=== PATIENT | female | born 1975 | race Caucasian/White ===

== ENCOUNTER → 2017-03-08 | Outpatient (REF) | payer OTHER | LOC: M LAB REF 17:14 | PROVIDERS: ATTEND Advanced Practice Midwife | DX: Z12.4 Encounter for screening for malignant neoplasm of cervix (principal); Z12.31 Encounter for screening mammogram for malignant neoplasm of breast ==

== ENCOUNTER → 2017-03-15 | Outpatient (REF) | payer OTHER ==
[2017-03-15 18:03] LABS: FREE T4 0.91 NG/DL (0.76-1.46)
[2017-03-15 20:18] LABS: MEAN CORPUSCULAR HEMOGLOBIN 31.5 pg (27.0-33.0); MEAN CORPUSCULAR HGB CONC 33.2 g/dl (32.0-36.5); RED CELL DISTRIBUTION WIDTH 11.5 % (11.5-14.5)
[2017-03-16 08:42] LABS: WHITE BLOOD COUNT 8.9 K/mm3 (4.0-10.0)
== END ==
LOC: M SMT 17:23
PROVIDERS: ATTEND Advanced Practice Midwife
DX: R63.5 Abnormal weight gain (principal)

== ENCOUNTER → 2017-03-31 | Outpatient (CLI) | payer OTHER ==
--- NOTE | 2017-03-31 10:59 | REPMRS ---
Patient History The patient states she had a clinical breast exam in February 2017.Family history of unknown cancer in father at age 50 or over, unknown cancer in maternal grandfather at age 50 or over, and breast cancer in paternal grandmother at age 50 or over. Digital Mammo Screening Bilat: March 31, 2017 - Exam #: [id number] Bilateral CC and MLO view(s) were taken. Technologist: Trinidad Jo, Technologist Prior study comparison: February 02, 2016, bilateral digital mammo screening bilat performed at [facility]. November 22, 2014, bilateral digital mammo screening bilat performed at [facility]. FINDINGS: The breast tissue is heterogeneously dense. This may lower the sensitivity of mammography. There is a moderate amount of heterogeneously dense fibroglandular tissue which is fairly symmetric. There is no interval development of dominant mass, architectural distortion, or clustered microcalcification typical of malignancy. There has been no change in the appearance of the mammogram from the prior studies. ASSESSMENT: BI-RADS/ACR category 1 mammogram. Negative. Recommendation Routine screening mammogram of both breasts in 1 year (for women over age 40). This mammogram was interpreted with the aid of an FDA-approved computer-aided dectection system. Electronically Signed By: Juan A Ruiz MD 03/31/17 [id number]
== END ==
LOC: M RAD 09:24
PROVIDERS: ATTEND Advanced Practice Midwife
DX: Z12.31 Encounter for screening mammogram for malignant neoplasm of breast (principal); Z80.3 Family history of malignant neoplasm of breast

== ENCOUNTER → 2017-10-12 | Outpatient (CLI) | payer OTHER ==
[2017-10-12 13:23] LABS: HEMATOCRIT 35.3 % (36.0-47.0); HEMOGLOBIN 11.4 g/dl (12.0-16.0); MEAN CORPUSCULAR HEMOGLOBIN 30.2 pg (27.0-33.0); MEAN CORPUSCULAR HGB CONC 32.3 g/dl (32.0-36.5); MEAN CORPUSCULAR VOLUME 93.4 fl (80.0-96.0); PLATELET COUNT, AUTOMATED 292 10^3/uL (150-450); RED BLOOD COUNT 3.78 10^6/uL (4.00-5.40); RED CELL DISTRIBUTION WIDTH 12.1 % (11.5-14.5); WHITE BLOOD COUNT 7.1 10^3/uL (4.0-10.0)
[2017-10-12 13:48] LABS: THYROID STIMULATING HORMONE 0.753 uIU/ML (0.358-3.740)
== END ==
LOC: M SMT 10:22
DX: R00.2 Palpitations (principal)
CPT/HCPCS: 84443

== ENCOUNTER → 2018-04-25 | Outpatient (REF) | payer OTHER ==
[2018-04-27 14:14] LABS: HPV HYBRID CAPTURE II Negative (Negative)
== END ==
LOC: M LAB REF 13:29
DX: Z01.419 Encounter for gynecological examination (general) (routine) without abnormal findings (principal); Z11.51 Encounter for screening for human papillomavirus (HPV)

== ENCOUNTER → 2018-05-01 | Outpatient (CLI) | payer OTHER ==
[2018-05-01 13:18] LABS: LUTEINIZING HORMONE 7.2 mIU/mL
[2018-05-01 13:19] LABS: FOLLICLE STIMULATING HORMONE 5.8 mIU/mL; FREE T4 0.78 NG/DL (0.76-1.46); THYROID STIMULATING HORMONE 0.776 uIU/ML (0.358-3.740)
[2018-05-02 11:18] LABS: ESTRADIOL 78.5 PG/ML
[2018-05-06 00:06] LABS: 17 HYDROXY PROGESTERONE 147 ng/dL (.); DEHYDROEPIANDROSTERONE SULFATE 182.4 ug/dL (57.3-279.2); INSULIN FREE 7.5 uU/mL (.); INSULIN TOTAL2 7.5 uU/mL (.); TESTOSTERONE FREE (DIRECT) 5.3 pg/mL (0.0-4.2)
== END ==
LOC: M LAB 12:12
DX: L68.0 Hirsutism (principal)
CPT/HCPCS: 83001

== ENCOUNTER → 2018-05-05 | Outpatient (CLI) | payer OTHER | LOC: M RAD 13:06 | DX: Z12.31 Encounter for screening mammogram for malignant neoplasm of breast (principal) ==

== ENCOUNTER → 2018-06-08 | Outpatient (REF) | payer OTHER | LOC: M SFHCPLAZ 15:08 | DX: E28.2 Polycystic ovarian syndrome (principal) ==

== ENCOUNTER → 2018-07-25 | Outpatient (CLI) | payer OTHER ==
[2018-07-25 11:49] LABS: ESTIMATED AVERAGE GLUCOSE 111 MG/DL (60-110); HEMOGLOBIN A1c 5.5 %
[2018-07-25 12:49] LABS: ALBUMIN 4.2 GM/DL (3.2-5.2); ALKALINE PHOSPHATASE 42 U/L (45-117); ALT/SGPT 12 U/L (12-78); ANION GAP 10 MEQ/L (8-16); AST/SGOT 15 U/L (7-37); BILIRUBIN,TOTAL 0.3 MG/DL (0.2-1.0); BLOOD UREA NITROGEN 11 MG/DL (7-18); CALCIUM LEVEL 8.9 MG/DL (8.5-10.1); CARBON DIOXIDE LEVEL 23 MEQ/L (21-32); CHLORIDE LEVEL 105 MEQ/L (98-107); CHOLESTEROL LEVEL 163 MG/DL (<200); CHOLESTEROL RISK RATIO 3.075 (<5); CREATININE FOR GFR 0.53 MG/DL (0.55-1.30); GLOMERULAR FILTRATION RATE > 60.0 (>58); GLUCOSE, FASTING 86 MG/DL (70-100); HDL CHOLESTEROL 53 MG/DL (>40); LDL CHOLESTEROL 95 MG/DL (<100); NON-HDL-C 110 MG/DL; POTASSIUM SERUM 4.1 MEQ/L (3.5-5.1); SODIUM LEVEL 138 MEQ/L (136-145); TOTAL PROTEIN 7.7 GM/DL (6.4-8.2); TRIGLYCERIDES LEVEL 77 MG/DL (<150)
== END ==
LOC: M LAB 10:23
DX: E28.2 Polycystic ovarian syndrome (principal)
CPT/HCPCS: 80053

== ENCOUNTER → 2019-05-14 | Outpatient (REF) | payer BC, OTHER ==
[2019-05-18 14:50] LABS: HPV HYBRID CAPTURE II Negative (Negative)
== END ==
LOC: M LAB REF 14:06
PROVIDERS: ATTEND Advanced Practice Midwife
DX: Z12.4 Encounter for screening for malignant neoplasm of cervix (principal)
CPT/HCPCS: 87624; G0123

== ENCOUNTER → 2019-05-30 | Outpatient (CLI) | payer BC ==
--- NOTE | 2019-05-30 13:07 | REPMRS ---
Patient History The patient states she had a clinical breast exam in 2018. Family history of unknown cancer at age 50 or over in maternal grandfather, unknown cancer at age 50 or over in father, breast cancer at age 50 or over in paternal grandmother. 3D TOMOSYNTHESIS WAS PERFORMED. The [facility] Riley lifetime risk for breast cancer is 17.1%. Digital Mammo Screening Bilat: May 30, 2019 - Exam #: [id number] Bilateral CC and MLO view(s) were taken. Technologist: Adore Vasquez, Technologist Prior study comparison: May 05, 2018, bilateral digital mammo screening bilat performed at [facility]. March 31, 2017, bilateral digital mammo screening bilat performed at [facility]. FINDINGS: The breast tissue is heterogeneously dense. This may lower the sensitivity of mammography. There has been no change in the appearance of the mammogram from the prior studies. There is a moderate amount of residual fibroglandular tissue which is fairly symmetric. There is no interval development of dominant mass, areas of architectural distortion, or clustered microcalcification typical of malignancy. Assessment: BI-RADS/ACR category 1 mammogram. Negative Mammogram. Recommendation Routine screening mammogram in 1 year (for women over age 40). This mammogram was interpreted with the aid of an FDA-approved computer-aided dectection system. Electronically Signed By: Alexi Mccarty MD 05/30/19 [id number]
== END ==
LOC: M RAD 12:06
PROVIDERS: ATTEND Advanced Practice Midwife
DX: Z12.31 Encounter for screening mammogram for malignant neoplasm of breast (principal); Z80.3 Family history of malignant neoplasm of breast

== ENCOUNTER → 2020-06-16 | Outpatient (CLI) | payer BC ==
[~2020-06-16] MED LIST: CYAN500T8 PO; LORA-243 PO; METF750T41 PO; SPIR100T3 PO
[2020-06-16 18:16] LABS: BLOOD UREA NITROGEN 11 MG/DL (7-18); CALCIUM LEVEL 9.1 MG/DL (8.5-10.1); CARBON DIOXIDE LEVEL 29 MEQ/L (21-32); CHLORIDE LEVEL 104 MEQ/L (98-107); GLOMERULAR FILTRATION RATE > 60.0 (>58); GLUCOSE, FASTING 86 MG/DL (70-100); POTASSIUM SERUM 4.5 MEQ/L (3.5-5.1); SODIUM LEVEL 136 MEQ/L (136-145)
== END ==
LOC: M PLALAB 15:49
PROVIDERS: ATTEND Family Medicine
DX: Z01.818 Encounter for other preprocedural examination (principal)

== ENCOUNTER → 2020-06-18 | Outpatient (CLI) | payer BC | LOC: M LABSMTC 09:36 | PROVIDERS: ATTEND Anesthesiology | DX: Z01.812 Encounter for preprocedural laboratory examination (principal); Z20.828 Contact with and (suspected) exposure to other viral communicable diseases | CPT/HCPCS: C9803; U0003 ==

== ENCOUNTER → 2020-06-18 | Outpatient (CLI) | payer BC ==
[2020-06-18 13:41] LABS: HEMATOCRIT 36.6 % (36.0-47.0); HEMOGLOBIN 11.8 g/dl (12.0-15.5); MEAN CORPUSCULAR HEMOGLOBIN 30.3 pg (27.0-33.0); MEAN CORPUSCULAR HGB CONC 32.2 g/dl (32.0-36.5); MEAN CORPUSCULAR VOLUME 93.8 fl (80.0-96.0); PLATELET COUNT, AUTOMATED 317 10^3/uL (150-450); WHITE BLOOD COUNT 7.1 10^3/uL (4.0-10.0)
== END ==
LOC: M PLALAB 10:04
PROVIDERS: ATTEND Family Medicine
DX: Z01.818 Encounter for other preprocedural examination (principal); Z86.2 Personal history of diseases of the blood and blood-forming organs and certain disorders involving the immune mechanism

== ENCOUNTER → 2020-06-20 | Outpatient (CLI) | payer BC ==
--- NOTE | 2020-06-21 09:43 | ECGEPIP ---
[facility] Test Date: 2020-06-20 Pat Name: CHRISTEL WEST Department: Room: - Gender: Female Checkroom Attendant: ABELARDO : 1975 Requested By: ELROY Mckeon Order Number: [id number] Reading MD: David Parker Measurements Intervals [place] Rate: 83 P: 67 WV: 150 QRS: 26 QRSD: 91 T: 42 QT: 360 QTc: 424 Interpretive Statements Normal sinus rhythm Nonspecific ST abnormalities Comparison tracing not on file Electronically Signed on 06-21-2020 9:42:46 EDT by David Parker
== END ==
LOC: M EKG 14:14
PROVIDERS: ATTEND Orthopaedic Surgery
DX: Z01.818 Encounter for other preprocedural examination (principal)

== ENCOUNTER 2020-06-23 09:04 | Day surgery (SDC) | payer BC ==
[~2020-06-23] VITALS: Ht 166.4 cm; Wt 85.6 kg
[~2020-06-23 09:04] MED LIST changes: +LIDOCAINE 2% 100MG/5ML SDV (FOR ANES.) As Ordered ONE; +MIDAZOLAM INJ 2MG/2ML VIAL (J2250 PER 1MG) As Ordered ONE; +MIDAZOLAM INJ 2MG/2ML VIAL (J2250 PER 1MG) IV SCH; +ONDANSETRON 4MG/2ML VIAL As Ordered ONE; +ROCURONIUM BROMIDE 50 MG/5 ML VIAL As Ordered ONE; +SUGAMMADEX SODIUM 500 MG/5 ML VIAL (BRIDION) As Ordered ONE; +ceFAZolin SOD 2 GM in IV 1 EA IV ONE; +dexameTHASONE 4 MG/ML 1ML VIAL (J1100 PER 1MG) As Ordered ONE; +fentaNYL 100 MCG/2 ML INJECTION (J3010) IV SCH; +fentaNYL 250 MCG/5 ML INJECTION (J3010) As Ordered ONE; +propofoL 200 MG/20 ML VIAL As Ordered ONE
[2020-06-23] MEDS ORDERED: EPINEPHrine INJ 1 MG/ML 1ML AMP ONE (09:05)
[2020-06-23] MEDS ORDERED: ROPIvacaine 0.5% 30ML INJECTION (J2795 PER 1MG) ONE (09:05)
[2020-06-23] MEDS ORDERED: dexameTHASONE 10MG/1ML VIAL PRES.FREE (J1100 PER 1MG) ONE (09:05)
[2020-06-23] MEDS ORDERED: MIDAZOLAM INJ 2MG/2ML VIAL (J2250 PER 1MG) As Ordered ONE (09:38)
[2020-06-23] MEDS ORDERED: fentaNYL 100 MCG/2 ML INJECTION (J3010) As Ordered ONE (09:38)
[2020-06-23] MEDS ORDERED: EPINEPHrine 1MG/ML INJ 30ML MD-VIAL ONE (09:50)
[2020-06-23] MEDS ORDERED: ACETAMINOPHEN 1000MG 100ML IV BTL (OFIRMEV) (J0131 PER 10MG) As Ordered ONE (11:14)
[2020-06-23] MEDS ORDERED: METOCLOPRAMIDE INJ 10MG/2ML VIAL (J2765 PER 1) As Ordered ONE (12:52)
[2020-06-23] MEDS ORDERED: MEPERIDINE INJ 25 MG/ML VIAL (J2175) IV PRN (13:00)
[2020-06-23] MEDS ORDERED: METOCLOPRAMIDE INJ 10MG/2ML VIAL (J2765 PER 1) IV PRN (13:00)
[2020-06-23] MEDS ORDERED: ONDANSETRON 4MG/2ML VIAL IV PRN (13:00)
[2020-06-23] MEDS ORDERED: oxyCODONE 5MG TAB PO PRN (13:00)
[2020-06-23] MEDS ORDERED: LR 1,000 ML IV SCH ×2 (13:00)
[2020-06-23] MEDS ORDERED: fentaNYL 100 MCG/2 ML INJECTION (J3010) IV PRN (13:00)
[2020-06-23 15:25] VITALS: BP 106/56
[2020-06-24] MEDS ORDERED: LR 1,000 ML IV ONE (07:00)
--- NOTE | 2020-07-01 15:10 | RO ---
DATE OF OPERATION: 06/23/2020 PREOPERATIVE DIAGNOSES: * Right shoulder calcific tendonitis. * Right shoulder partial thickness rotator cuff tear. * Right shoulder biceps tendonitis. * Right shoulder AC joint arthritis. POSTOPERATIVE DIAGNOSES: * Right shoulder calcific tendonitis. * Right shoulder partial bursal rotator cuff tear. * Right shoulder biceps tendonitis. * Right shoulder AC joint arthritis. PROCEDURES: * Right shoulder arthroscopic decompression of calcific tendonitis. * Right shoulder arthroscopic rotator cuff debridement. * Right shoulder open subpectoral biceps tenodesis. SURGEON: Dr. Wilfred Shaver INSULATION PACKER: HAROLDO Seaman ANESTHESIA: General with preoperative nerve block. IV FLUIDS: Lactated Ringer's. ESTIMATED BLOOD LOSS: 10 mL. IMPLANTS: Arthrex proximal biceps button x1. CLOSURE: Monocryl and nylon. PROCEDURE: The patient was identified in the preoperative holding area, the right shoulder was marked. She had an interscalene nerve block from anesthesia. She was brought to the operating room and placed supine in well padded OR table with beanbag. General anesthesia was induced. Examination under anesthesia revealed 180 degrees of forward flexion, 90 of external rotation, no increased anterior posterior translation. She was placed in left-side down lateral decubitus position with axillary roll and all bony prominences well padded. Bilateral SCDs for DVT prophylaxis. The right arm was placed into Arthrex STaR sleeve lateral decubitus traction sheldon with 10 pounds of traction. The right shoulder was prepped and draped in a normal sterile fashion with ChloraPrep. She received appropriate IV antibiotics within one hour of incision. Coni Escoto was present for the entire procedure and participated in all essential portions of the procedure. This included patient positioning and draping, holding the arthroscope, holding retractors during the biceps tenodesis, assisting with whip-stitching of the tendon and securing the tendon. She also performed wound closure, applied the dressing and sling. Prior to incision time out was performed per hospital protocol. The right shoulder was insufflated with lactated Ringer's. Standard posterolateral portal was made with an 11-blade. 30-degree arthroscope was introduced into the joint. Diagnostic arthroscopy was carried out. There was an area of grade 1 chondromalacia in the posterior humeral head. The glenoid was in excellent condition. There was type 1 superior labral tear. There was a Paulette complex. There was no tearing of the articular surface of the rotator cuff. An anterior working portal was established through the rotator interval. Triple Arthrex cannula placed. On probing of the superior labrum I would say there is a type SLAP tear. The long head of the biceps was brought into the joint where there was some hyperemia along the tendon and based on her preoperative symptoms of tenderness at the bicipital groove and positive Speeds test I elected to proceed with the biceps tenodesis. The meniscal biter was used to release long head of the biceps off the superior labrum. The stump was debrided with a shaver. Shoulder joint was irrigated and drained. We then proceed with the open biceps tenodesis. 15-blade was used to make an incision just lateral to the axilla. Dissection down to the bicipital groove with Metzenbaum scissors. The fascia was carefully opened and the bicipital groove palpated. Long head of the biceps was dissected out uneventfully with right angle clamp. There was some flattening of the tendon proximally consistent with some intrasubstance split tearing. A running locking whipped stitch was then placed with the FiberLoop from the Arthrex proximal biceps kit. Excess tendon cut and sent to pathology. Sutures were loaded through the biceps button per routine. The unicortical drill hole was then made with spade tip drill bit within the bicipital groove just proximal to the lower edge of the pec major tendon. Irrigation was used to remove bony debris. The button was passed through the drill hole on its insertor, sutures were toggled to flip the button and reduce the tendon to the groove nicely. Curved free needle was used to pass one limb of suture back through the tendon and knots were tied by hand to lock the construct in place. This nicely restored the resting tension of the biceps. The incision was then irrigated and then closed with 2-0 Vicryl, 2-0 Vicryl and running Monocryl. At the end of the case Steri-Strips were placed. The arthroscope was now placed into the subacromial space where there was moderate bursitis. There was a partial bursal rotator cuff tear that appeared low grade. Through a lateral working portal I performed a bursectomy. There was no large spur from the anterior acromion. It was then apparent that the patient did have somewhat unstable os acromiale and this was noted on preoperative imaging and she did not have any specific tenderness there. The distal clavicle was identified and there was not a typical joint space between the anterior meso-acromion and the distal clavicle. There was actually more mobility at the os site than at the AC joint. So there is really no indication for an acromioplasty here. The bur was used to remove small amount of bone from the inferior surface of the distal clavicle to eliminate any impingement. At this point I felt that performing thorough distal clavicle excision would result in increased instability of the os acromiale and increase the chance that she would need some type of ORIF there which has a high failure rate. The shaver was used to perform a bursectomy. I also debrided a partial bursal- sided rotator cuff tear, this was noted in the area of the calcific tendonitis as well as far lateral at the footprint. Spinal needle was then used to gently trephinate the area of calcific tendonitis and then switching stick was used to milk out the calcium deposit. These steps were repeated until all calcium tissue had been decompressed and removed with the shaver. The shaver was then used to perform a careful debridement of the adjacent rotator cuff fibers. The shoulder was internally and externally rotated. There was no buckling or liftoff. The calcium deposit location was very close to the muscle-tendon junction, it was probably 7-8 mm lateral to the muscle-tendon junction. This did not warrant a repair. The shoulder was then irrigated and drained. Portals were closed with nylon suture. Steri-Strips were placed over the biceps incision and she was placed into a bulky sterile dressing. At the time of this dictation sling is about to be placed and then she will be brought to the PACU in stable condition following extubation. All counts correct x2. COMPLICATIONS: None. ZULEMA
== END 2020-06-23 16:04 | disposition home or self-care (01) ==
LOC: M SDC 09:04
PROVIDERS: ATTEND Orthopaedic Surgery
DX: M75.111 Incomplete rotator cuff tear or rupture of right shoulder, not specified as traumatic (principal); M75.21 Bicipital tendinitis, right shoulder; M75.41 Impingement syndrome of right shoulder; M19.011 Primary osteoarthritis, right shoulder; Z88.5 Allergy status to narcotic agent; Z88.8 Allergy status to other drugs, medicaments and biological substances; E28.2 Polycystic ovarian syndrome
CPT/HCPCS: 23430; 29823; 29826; 64415; 81025; 88304; C1713; J0131; J0171; J0690; J1100; J2405; J2765; J2795; J3010

== ENCOUNTER → 2020-08-20 | Outpatient (REF) | payer BC ==
[~2020-08-20] MED LIST changes: -LIDOCAINE 2% 100MG/5ML SDV (FOR ANES.) As Ordered ONE; -MIDAZOLAM INJ 2MG/2ML VIAL (J2250 PER 1MG) As Ordered ONE; -MIDAZOLAM INJ 2MG/2ML VIAL (J2250 PER 1MG) IV SCH; -ONDANSETRON 4MG/2ML VIAL As Ordered ONE; -ROCURONIUM BROMIDE 50 MG/5 ML VIAL As Ordered ONE; -SUGAMMADEX SODIUM 500 MG/5 ML VIAL (BRIDION) As Ordered ONE; -ceFAZolin SOD 2 GM in IV 1 EA IV ONE; -dexameTHASONE 4 MG/ML 1ML VIAL (J1100 PER 1MG) As Ordered ONE; -fentaNYL 100 MCG/2 ML INJECTION (J3010) IV SCH; -fentaNYL 250 MCG/5 ML INJECTION (J3010) As Ordered ONE; -propofoL 200 MG/20 ML VIAL As Ordered ONE
[2020-08-20 13:45] LABS: HEMATOCRIT 36.4 % (36.0-47.0); HEMOGLOBIN 11.4 g/dl (12.0-15.5); MEAN CORPUSCULAR HEMOGLOBIN 29.2 pg (27.0-33.0); MEAN CORPUSCULAR HGB CONC 31.3 g/dl (32.0-36.5); MEAN CORPUSCULAR VOLUME 93.3 fl (80.0-96.0); PLATELET COUNT, AUTOMATED 326 10^3/uL (150-450); WHITE BLOOD COUNT 5.5 10^3/uL (4.0-10.0)
[2020-08-20 14:19] LABS: FOLATE 13.1 NG/ML
== END ==
LOC: M SFHCPLAZ 11:08
DX: D64.9 Anemia, unspecified (principal)

== ENCOUNTER → 2021-01-06 | Outpatient (CLI) | payer BC ==
[~2021-01-06] MED LIST changes: +CYAN500T14 PO; -CYAN500T8 PO
== END ==
LOC: M WHC 15:52
PROVIDERS: ATTEND Advanced Practice Midwife
DX: Z12.31 Encounter for screening mammogram for malignant neoplasm of breast (principal); Z53.9 Procedure and treatment not carried out, unspecified reason

== ENCOUNTER → 2021-01-06 | Outpatient (REF) | payer BC | LOC: M SFHCWAGY 10:05 | PROVIDERS: ATTEND Advanced Practice Midwife | DX: Z12.4 Encounter for screening for malignant neoplasm of cervix (principal) ==

== ENCOUNTER → 2021-02-11 | Outpatient (CLI) | payer BC ==
--- NOTE | 2021-02-11 11:27 | REPMRS ---
Patient History The patient states she had a clinical breast exam in December 2020. Family history of unknown cancer at age 50 or over in maternal grandfather, unknown cancer at age 50 or over in father, breast cancer at age 50 or over in paternal grandmother. Tomosynthesis is performed. Volpara breast density is c. [facility] lifetime risk of breast cancer 16.7%. Patient has signed MRS History Sheet. Digital Woman Screen Mammo: February 11, 2021 - Exam #: [id number] Bilateral CC and MLO view(s) were taken. Technologist: RT Rima Prior study comparison: May 30, 2019, bilateral digital mammo screening bilat, performed at [facility]. May 05, 2018, bilateral digital mammo screening bilat, performed at [facility]. FINDINGS: The breast tissue is heterogeneously dense. This may lower the sensitivity of mammography. There has been no change in the appearance of the mammogram from the prior studies. There is a moderate amount of residual fibroglandular tissue which is fairly symmetric. There is no interval development of dominant mass, areas of architectural distortion, or clustered microcalcification typical of malignancy. Assessment: BI-RADS/ACR category 1 mammogram. Negative Mammogram. Recommendation Routine screening mammogram in 1 year (for women over age 40). This mammogram was interpreted with the aid of an FDA-approved computer-aided dectection system. Electronically Signed By: Alexi Mccarty MD 02/11/21 1123
== END ==
LOC: M WHC 09:49
PROVIDERS: ATTEND Advanced Practice Midwife
DX: Z12.31 Encounter for screening mammogram for malignant neoplasm of breast (principal); Z80.3 Family history of malignant neoplasm of breast

== ENCOUNTER → 2021-03-27 | Outpatient (CLI) | payer BC ==
[2021-03-31 18:08] LABS: HEPATITIS C QUANTITATION HCV Not Detected IU/mL (.)
== END ==
LOC: M PLALAB 13:47
PROVIDERS: ATTEND Student in an Organized Health Care Education/Training Program
DX: Z13.9 Encounter for screening, unspecified (principal)

== ENCOUNTER → 2021-04-02 | Outpatient (REF) | payer BC | LOC: M SFHCPLAZ 11:53 | DX: Z13.9 Encounter for screening, unspecified (principal) ==

== ENCOUNTER → 2021-10-23 | Outpatient (CLI) | payer BC ==
[2021-10-23 17:57] LABS: FREE T4 0.97 NG/DL (0.76-1.46); THYROID STIMULATING HORMONE 0.594 uIU/ML (0.358-3.740)
== END ==
LOC: M PLALAB 14:03
PROVIDERS: ATTEND Student in an Organized Health Care Education/Training Program
DX: R53.83 Other fatigue (principal)

== ENCOUNTER → 2022-07-09 | Outpatient (CLI) | payer BC | LOC: M WHC 08:47 | PROVIDERS: ATTEND Obstetrics & Gynecology | DX: Z12.31 Encounter for screening mammogram for malignant neoplasm of breast (principal) ==

== ENCOUNTER → 2022-10-08 | Outpatient (CLI) | payer BC ==
[2022-10-08 17:30] LABS: THYROID STIMULATING HORMONE 0.659 uIU/ML (0.55-4.78)
[2022-10-08 17:31] LABS: FREE T4 0.94 NG/DL (0.89-1.76)
[2022-10-08 17:33] LABS: THYROGLOBULIN ANTIBODY < 15.0 U/ML (<60.0)
[2022-10-08 17:34] LABS: THYROID PEROXIDASE ANTIBODY 32 U/ML (<60.0)
== END ==
LOC: M PLALAB 15:40
PROVIDERS: ATTEND Student in an Organized Health Care Education/Training Program
DX: R07.89 Other chest pain (principal)

== ENCOUNTER → 2022-11-05 | Outpatient (REF) | payer BC | LOC: M SFHCWAGY 13:09 | PROVIDERS: ATTEND Advanced Practice Midwife | DX: Z12.4 Encounter for screening for malignant neoplasm of cervix (principal); R87.615 Unsatisfactory cytologic smear of cervix ==

== ENCOUNTER → 2022-12-30 | Outpatient (CLI) | payer BC ==
[2022-12-30 18:26] LABS: BASO # 0.1 10^3/uL (0.0-0.2); BASO % 0.7 % (0.0-1.0); EOS # 0.1 10^3/uL (0.0-0.5); EOS % 0.7 % (0.0-3.0); HEMATOCRIT 32.2 % (36.0-47.0); HEMOGLOBIN 10.3 g/dl (12.0-15.5); LYMPH # 2.7 10^3/uL (1.5-5.0); LYMPH % 33.4 % (24.0-44.0); MEAN CORPUSCULAR HEMOGLOBIN 28.9 pg (27.0-33.0); MEAN CORPUSCULAR VOLUME 90.2 fl (80.0-96.0); MONO # 0.7 10^3/uL (0.0-0.8); MONO % 8.2 % (2.0-8.0); NEUTROPHILS # 4.6 10^3/uL (1.5-8.5); NEUTROPHILS % 56.8 % (36.0-66.0); PLATELET COUNT, AUTOMATED 339 10^3/uL (150-450); RED BLOOD COUNT 3.57 10^6/uL (4.00-5.40)
[2022-12-30 18:54] LABS: PERCENT SATURATION 9.1 % (13.2-45.0)
[2022-12-30 18:57] LABS: FERRITIN 5.1 NG/ML (7.3-270.7)
== END ==
LOC: M PLALAB 15:14
PROVIDERS: ATTEND Student in an Organized Health Care Education/Training Program
DX: R42 Dizziness and giddiness (principal)

== ENCOUNTER → 2022-12-30 | Outpatient (REF) | payer BC | LOC: M SFHCPLAZ 14:07 | PROVIDERS: ATTEND Internal Medicine Hematology | DX: R42 Dizziness and giddiness (principal); Z53.9 Procedure and treatment not carried out, unspecified reason ==

== ENCOUNTER → 2023-02-18 | Outpatient (CLI) | payer BC | LOC: M CARPUL 10:25 | PROVIDERS: ATTEND Student in an Organized Health Care Education/Training Program | DX: R07.89 Other chest pain (principal) ==

== ENCOUNTER → 2023-03-14 | Outpatient (CLI) | payer BC ==
[2023-03-14 15:32] LABS: BASO # 0.1 10^3/uL (0.0-0.2); BASO % 0.6 % (0.0-1.0); EOS # 0.1 10^3/uL (0.0-0.5); EOS % 1.3 % (0.0-3.0); HEMATOCRIT 34.8 % (36.0-47.0); LYMPH # 2.2 10^3/uL (1.5-5.0); LYMPH % 27.6 % (24.0-44.0); MEAN CORPUSCULAR HEMOGLOBIN 28.9 pg (27.0-33.0); MEAN CORPUSCULAR HGB CONC 31.6 g/dl (32.0-36.5); MEAN CORPUSCULAR VOLUME 91.3 fl (80.0-96.0); MONO # 0.6 10^3/uL (0.0-0.8); NEUTROPHILS % 62.2 % (36.0-66.0); PLATELET COUNT, AUTOMATED 344 10^3/uL (150-450); RED BLOOD COUNT 3.81 10^6/uL (4.00-5.40)
[2023-03-14 16:06] LABS: ALBUMIN 3.8 G/DL (3.2-5.2); BLOOD UREA NITROGEN 12 MG/DL (9-23); CALCIUM LEVEL 8.5 MG/DL (8.5-10.1); CARBON DIOXIDE LEVEL 28 MMOL/L (20-31); CHLORIDE LEVEL 106 MMOL/L (98-107); CREATININE FOR GFR 0.75 MG/DL (0.55-1.30); GLOMERULAR FILTRATION RATE > 60.0 (>58); GLUCOSE, FASTING 84 MG/DL (60-100); PHOSPHORUS LEVEL 3.7 MG/DL (2.5-4.9); POTASSIUM SERUM 4.2 MMOL/L (3.5-5.1); SODIUM LEVEL 141 MMOL/L (136-145)
[2023-03-14 16:07] LABS: IRON (FE) 55 UG/DL (50-170); PERCENT SATURATION 14.3 % (13.2-45.0); TOTAL IRON BINDING CAPACITY 384 UG/DL (250-425)
[2023-03-14 16:18] LABS: FERRITIN 7.1 NG/ML (7.3-270.7)
== END ==
LOC: M PLALAB 13:12
PROVIDERS: ATTEND Internal Medicine Cardiovascular Disease
DX: R06.02 Shortness of breath (principal); R42 Dizziness and giddiness; D64.9 Anemia, unspecified

== ENCOUNTER → 2023-04-06 | Outpatient (CLI) | payer BC | LOC: M CARPUL 14:26 | PROVIDERS: ATTEND Internal Medicine Cardiovascular Disease | DX: R06.02 Shortness of breath (principal) ==

== ENCOUNTER → 2023-04-28 | Outpatient (REF) | payer BC | LOC: M SFHCPLAZ 13:15 | PROVIDERS: ATTEND Family Medicine | DX: D23.62 Other benign neoplasm of skin of left upper limb, including shoulder (principal) ==

== ENCOUNTER → 2023-05-13 | Outpatient (REF) | payer BC ==
[2023-05-13 18:28] LABS: BASO # 0.1 10^3/uL (0.0-0.2); BASO % 0.7 % (0.0-1.0); EOS # 0.1 10^3/uL (0.0-0.5); EOS % 1.2 % (0.0-3.0); HEMATOCRIT 35.3 % (36.0-47.0); HEMOGLOBIN 11.5 g/dl (12.0-15.5); LYMPH # 3.2 10^3/uL (1.5-5.0); LYMPH % 34.3 % (24.0-44.0); MEAN CORPUSCULAR HEMOGLOBIN 30.1 pg (27.0-33.0); MEAN CORPUSCULAR HGB CONC 32.6 g/dl (32.0-36.5); MEAN CORPUSCULAR VOLUME 92.4 fl (80.0-96.0); MONO # 0.9 10^3/uL (0.0-0.8); MONO % 9.3 % (2.0-8.0); NEUTROPHILS % 54.2 % (36.0-66.0); PLATELET COUNT, AUTOMATED 325 10^3/uL (150-450); RED BLOOD COUNT 3.82 10^6/uL (4.00-5.40); WHITE BLOOD COUNT 9.2 10^3/uL (4.0-10.0)
[2023-05-13 19:02] LABS: PERCENT SATURATION 12.7 % (13.2-45.0)
[2023-05-13 19:05] LABS: FERRITIN 15.1 NG/ML (7.3-270.7)
== END ==
LOC: M LABDRAWP 18:16
PROVIDERS: ATTEND Internal Medicine Cardiovascular Disease
DX: D64.9 Anemia, unspecified (principal)

== ENCOUNTER → 2023-07-27 | Outpatient (CLI) | payer OTHER ==
[2023-07-27 18:31] LABS: HEMATOCRIT 34.1 % (36.0-47.0); MEAN CORPUSCULAR HEMOGLOBIN 30.5 pg (27.0-33.0); MEAN CORPUSCULAR HGB CONC 32.3 g/dl (32.0-36.5); MEAN CORPUSCULAR VOLUME 94.5 fl (80.0-96.0); PLATELET COUNT, AUTOMATED 311 10^3/uL (150-450); RED BLOOD COUNT 3.61 10^6/uL (4.00-5.40)
[2023-07-27 18:48] LABS: HEMOGLOBIN A1c 5.1 % (4.0-6.0)
[2023-07-27 18:53] LABS: ALBUMIN 3.8 G/DL (3.2-5.2); BLOOD UREA NITROGEN 13 MG/DL (9-23); CALCIUM LEVEL 8.8 MG/DL (8.5-10.1); CARBON DIOXIDE LEVEL 28 MMOL/L (20-31); CHLORIDE LEVEL 106 MMOL/L (98-107); CREATININE FOR GFR 0.61 MG/DL (0.55-1.30); GLOMERULAR FILTRATION RATE > 60.0 (>58); GLUCOSE, FASTING 85 MG/DL (60-100); IRON (FE) 32 UG/DL (50-170); PERCENT SATURATION 9.8 % (13.2-45.0); PHOSPHORUS LEVEL 3.8 MG/DL (2.5-4.9); POTASSIUM SERUM 4.2 MMOL/L (3.5-5.1); SODIUM LEVEL 142 MMOL/L (136-145); TOTAL IRON BINDING CAPACITY 327 UG/DL (250-425)
== END ==
LOC: M PLALAB 16:48
PROVIDERS: ATTEND Internal Medicine Cardiovascular Disease
DX: R07.2 Precordial pain (principal); R06.02 Shortness of breath; R73.02 Impaired glucose tolerance (oral)

== ENCOUNTER → 2023-08-05 | Outpatient (CLI) | payer OTHER ==
[2023-08-05 18:25] LABS: FREE T4 0.84 NG/DL (0.89-1.76); THYROID STIMULATING HORMONE 0.716 uIU/ML (0.55-4.78)
== END ==
LOC: M PLALAB 14:51
PROVIDERS: ATTEND Student in an Organized Health Care Education/Training Program
DX: R00.2 Palpitations (principal); M25.561 Pain in right knee; M76.891 Other specified enthesopathies of right lower limb, excluding foot

== ENCOUNTER → 2023-08-05 | Outpatient (REF) | payer OTHER | LOC: M SFHCPLAZ 14:50 | PROVIDERS: ATTEND Family Medicine | DX: R00.2 Palpitations (principal); Z53.9 Procedure and treatment not carried out, unspecified reason ==

== ENCOUNTER → 2023-10-20 | Outpatient (CLI) | payer OTHER | LOC: M PLAIMG 16:18 | PROVIDERS: ATTEND Student in an Organized Health Care Education/Training Program | DX: R20.2 Paresthesia of skin (principal); M19.012 Primary osteoarthritis, left shoulder; M75.32 Calcific tendinitis of left shoulder; M50.323 Other cervical disc degeneration at C6-C7 level; M47.812 Spondylosis without myelopathy or radiculopathy, cervical region ==

== ENCOUNTER → 2023-10-20 | Outpatient (REF) | payer OTHER | LOC: M SFHCPLAZ 15:41 | PROVIDERS: ATTEND Internal Medicine Hematology | DX: Z53.9 Procedure and treatment not carried out, unspecified reason (principal); R20.2 Paresthesia of skin ==

== ENCOUNTER → 2023-11-21 | Outpatient (REF) | payer OTHER | LOC: M SFHCWAGY 13:47 | PROVIDERS: ATTEND Advanced Practice Midwife | DX: Z12.4 Encounter for screening for malignant neoplasm of cervix (principal) ==

== ENCOUNTER → 2023-12-02 | Outpatient (CLI) | payer OTHER | LOC: M WHC 15:26 | PROVIDERS: ATTEND Advanced Practice Midwife | DX: Z12.31 Encounter for screening mammogram for malignant neoplasm of breast (principal) ==

== ENCOUNTER → 2025-01-29 | Outpatient (CLI) | payer OTHER | LOC: M CARPUL 08:13 | PROVIDERS: ATTEND Registered Nurse | DX: I27.20 Pulmonary hypertension, unspecified (principal); I08.1 Rheumatic disorders of both mitral and tricuspid valves ==

== ENCOUNTER → 2025-05-15 | Outpatient (REF) | payer OTHER | LOC: M SFHCPLAZ 08:51 | PROVIDERS: ATTEND Family Medicine | DX: Z53.9 Procedure and treatment not carried out, unspecified reason (principal) ==

== ENCOUNTER → 2025-05-15 | Outpatient (CLI) | payer OTHER ==
[2025-05-15 12:11] LABS: BASO # 0.0 10^3/uL (0.0-0.2); BASO % 0.6 % (0.0-1.0); EOS # 0.1 10^3/uL (0.0-0.5); EOS % 1.6 % (0.0-3.0); LYMPH # 1.3 10^3/uL (1.5-5.0); LYMPH % 18.2 % (24.0-44.0); MONO # 0.7 10^3/uL (0.0-0.8); MONO % 9.5 % (2.0-8.0); NEUTROPHILS # 4.9 10^3/uL (1.5-8.5); NEUTROPHILS % 69.7 % (36.0-66.0); PLATELET COUNT, AUTOMATED 308 10^3/uL (150-450)
[2025-05-15 12:29] LABS: IRON (FE) 166.0 UG/DL (50-170); PERCENT SATURATION 54.4 % (13.2-45.0)
== END ==
LOC: M PLAIMG 09:25
DX: M25.572 Pain in left ankle and joints of left foot (principal); D50.9 Iron deficiency anemia, unspecified

== ENCOUNTER → 2025-05-29 | Outpatient (REF) | payer OTHER | LOC: M SFHCPLAZ 21:40 | DX: Z53.9 Procedure and treatment not carried out, unspecified reason (principal); D50.8 Other iron deficiency anemias ==

== ENCOUNTER → 2025-06-14 | Outpatient (CLI) | payer OTHER ==
[2025-06-14 18:40] LABS: IRON (FE) 20 UG/DL (50-170); PERCENT SATURATION 6.5 % (13.2-45.0)
[2025-06-14 18:44] LABS: VITAMIN B12 LEVEL > 2000 PG/ML (211-911)
== END ==
LOC: M LAB 16:33
DX: D50.8 Other iron deficiency anemias (principal)

== ENCOUNTER → 2025-07-12 | Outpatient (CLI) | payer OTHER | LOC: M WHC 13:59 | PROVIDERS: ATTEND Advanced Practice Midwife | DX: Z12.31 Encounter for screening mammogram for malignant neoplasm of breast (principal) ==

== ENCOUNTER → 2025-07-12 | Outpatient (REF) | payer OTHER ==
[2025-07-16 13:02] LABS: HPV APTIMA Not Detected (Not Detected)
== END ==
LOC: M SFHCWAGY 17:30
PROVIDERS: ATTEND Advanced Practice Midwife
DX: Z12.4 Encounter for screening for malignant neoplasm of cervix (principal)